=== PATIENT | female | born 1980 ===

== ENCOUNTER 2024-04-12 13:31 | Outpatient (CLI) | payer OTHER ==
[~2024-04-12 13:31] MED LIST: CLONAZEPAM2 MG PO; FERRO-TIME325 MG PO; MAXIMUM D3325 MCG PO; TOPROL XL50 M1 PO
== END 2024-04-12 14:15 | disposition home or self-care (01) ==
LOC: EKG 13:31
PROVIDERS: ATTEND General Practice
DX: I11.9 Hypertensive heart disease without heart failure (principal)

== ENCOUNTER 2024-04-12 14:13 | Outpatient (CLI) | payer OTHER | END 2024-04-12 14:23 | disposition home or self-care (01) | LOC: RAD 14:13 | PROVIDERS: ATTEND General Practice | DX: I11.9 Hypertensive heart disease without heart failure (principal) ==

== ENCOUNTER 2024-04-13 13:01 | Day surgery (SDC) | payer OTHER ==
[2024-04-08 09:00] VITALS: BP 110/73
[~2024-04-13] VITALS: Ht 162.6 cm; Wt 64.9 kg
[2024-04-13] MEDS ORDERED: POVIDONE-IODINE 118 ML BOTT TOP ONE (13:39)
[2024-04-13] MEDS ORDERED: CITRIC ACID/SODIUM CITRATE 30 ML BLIST.PACK PO ONE (14:31)
[2024-04-13] MEDS ORDERED: METOCLOPRAMIDE HCL 5 MG/ML VIAL ONE (14:31)
[2024-04-13] MEDS ORDERED: ONDANSETRON HCL 2 MG/ML VIAL IV PRN (18:00)
[2024-04-13] MEDS ORDERED: MORPHINE SULFATE 4 MG/ML VIAL IV PRN (18:00)
[2024-04-13] MEDS ORDERED: RINGERS SOLUTION,LACTATED 1,000 ML IV SCH (18:00)
== END 2024-04-13 20:55 | disposition home or self-care (01) ==
LOC: CIR.AMB 13:01
PROVIDERS: ATTEND General Practice
DX: N93.9 Abnormal uterine and vaginal bleeding, unspecified (principal); N88.2 Stricture and stenosis of cervix uteri; F41.8 Other specified anxiety disorders; Z88.6 Allergy status to analgesic agent